=== PATIENT | female | born 1945 | race Caucasian/White ===

== ENCOUNTER 2020-06-04 14:45 | Emergency (ER) | payer MEDICARE, SELFPAY ==
--- NOTE | 2020-06-04 15:54 | PC.NURSE ---
1719 arrived, stated she has a bed at [facility] but [facility] refused to take her there; does not want to wait to be seen in the ED. Attempt to explain we cannot send her to another hospital once she arrives here. Spouse and pt. opt to leave without being seen and he is taking her to [facility] via POV. Advised of risks. Assisted to car via w/c.
== END 2020-06-04 15:54 | disposition left against medical advice (07) ==
LOC: ANHED 16:09
DX: Z53.21 Procedure and treatment not carried out due to patient leaving prior to being seen by health care provider (principal)
CPT/HCPCS: 99199